=== PATIENT | female | born 1965 | race Two or more races ===

== ENCOUNTER 2016-11-12 20:52 | Outpatient (CLI) | payer OTHER | END 2016-11-12 20:53 | disposition critical access hospital (66) | LOC: EMS 20:52 | PROVIDERS: ATTEND Surgery | DX: R10.9 Unspecified abdominal pain (principal); R21 Rash and other nonspecific skin eruption | CPT/HCPCS: A0425; A0427 ==

== ENCOUNTER 2016-11-12 21:10 | Emergency (ER) | payer OTHER ==
[2016-11-12 21:38] VITALS: BP 96/58
--- NOTE | 2016-11-12 22:20 | ED Physician Documentation ---
PD HPI SKIN - Stated complaint Stated Complaint: ALLERGIC REACTION - Chief complaint Chief Complaint: Allergic Rx - History obtained from History obtained from: Patient, Family, EMS - History of Present Illness Timing - onset: Today Timing - details: Abrupt onset, Now resolved Location: Face, Neck, Abdomen, RLE, LLE Quality / character: Itchy, Burning Improved by: Oral steroids, Epi Associated symptoms: No: Headache, Facial swelling, Dyspnea, N/V/D Contributing factors: Exposed to medication Similar symptoms before: Has not had sx before Recently seen: Not recently seen - Additional information Additional information: Patient is a 51 year old female presenting to the emergency department for an allergic reaction. patient states that she took niacin tonight for the first time. immediately after patient started flushing and felt dizzy so ems was called. while with ems patient was treated with epi and benadryl. Upon initial evaluation in the emergency department patient was feeling much better. Review of Systems Constitutional: denies: Fever Eyes: denies: Decreased vision, Photophobia Ears: denies: Ear pain, Drainage/discharge Nose: reports: Congestion. denies: Rhinorrhea / runny nose Throat: denies: Sore throat Cardiac: denies: Palpitations Respiratory: denies: Cough, Wheezing GI: denies: Nausea, Vomiting : denies: Dysuria, Frequency Skin: reports: Rash. denies: Lesions, Abrasion (s), Laceration (s) Musculoskeletal: denies: Extremity pain, Extremity swelling Neurologic: denies: Generalized weakness, Focal weakness, Syncope, Altered mental status, Headache, Head injury, LOC Immunocompromised: denies: Immunocompromised PD PAST MEDICAL HISTORY - Past Medical History Past Medical History: No ENVIRONMENTAL ADVISOR: Other - Past Surgical History Past Surgical History: Yes /ENVIRONMENTAL ADVISOR: Endometrial ablation - Present Medications Home Medications: Ambulatory Orders Medication Instructions Recorded Confirmed Medroxyprogesterone Acetate 10 mg PO DAILY #14 tablet 02/21/16 [Provera] - Allergies Allergies/Adverse Reactions: Allergies Allergy/AdvReac Type Severity Reaction Status Date / Time No Known Drug Allergies Allergy Verified 02/21/16 18:04 - Social History Does the pt smoke?: No Smoking Status: Never smoker Does the pt have substance abuse?: No PD ED PE NORMAL - Vitals Vital signs reviewed: Yes - General General: Alert and oriented X 3, No acute distress - HEENT HEENT: Atraumatic, PERRL, Pharynx benign, Other (no soft palate swelling) - Neck Neck: Supple, no meningeal sign - Cardiac Cardiac: RRR, No murmur - Respiratory Respiratory: No respiratory distress - Abdomen Abdomen: Soft, Non tender, Non distended - Derm Derm: Normal color, Warm and dry, No rash - Extremities Extremities: Normal ROM s pain, No edema, No calf tenderness / cord - Neuro Neuro: Alert and oriented X 3, No motor deficit, No sensory deficit, Normal speech - Psych Psych: Normal mood, Normal affect PD ED PE EXPANDED - Derm Derm: Rash (mild splotchy erythematous rash) Results - Vitals Vitals: Vital Signs - 24 hr 11/12/16 11/12/16 21:13 21:37 Temperature 36.2 C L Heart Rate 77 Respiratory 17 Rate Blood Pressure 96/58 L O2 Saturation 100 Oxygen O2 Source Room air PD MEDICAL DECISION MAKING - ED course Complexity details: reviewed old records, reviewed results, re-evaluated patient , considered differential, d/w patient, d/w family ED course: Patient was seen and examined at bedside. Upon initial evaluation in the emergency department patient was mildly hypotensive and treated with IV fluids. Patient was also treated with solumedrol and pepcid. patient was observed in the emergency department for almost two hours. patient had no deterioration and was asymptomatic upon discharge. Patient and family felt comfortable with the plan and were stable for discharge with outpatient josue pineda. Departure - Departure Disposition: 01 Home, Self Care Clinical Impression: Allergic reaction caused by a drug Condition: Good Instructions: ED Drug React Allergic Follow-Up: primary,care provider [Other] Comments: Your symptoms today are being caused but the Niacin. the flushing from niacin is a pretty common reaction. You should no longer take the medication. You can take benadryl and pepcid for itching or flushing. If you are trying to increase your ldl cholesterol you should increase the amount of exercise. Discharge Date/Time: 11/12/16 22:28
== END 2016-11-12 22:28 | disposition home or self-care (01) ==
LOC: EDUNIT# → ED 21:10 → SUPCPDRO 21:10 → ED 22:28
DX: R42 Dizziness and giddiness (principal); R23.2 Flushing; T46.7X5A Adverse effect of peripheral vasodilators, initial encounter
CPT/HCPCS: 99283

== ENCOUNTER 2021-09-27 11:46 | Outpatient (CLI) | payer OTHER | END 2021-09-27 11:47 | disposition critical access hospital (66) | LOC: EMS 11:46 | DX: R11.2 Nausea with vomiting, unspecified (principal); R19.7 Diarrhea, unspecified; R53.1 Weakness; R42 Dizziness and giddiness | CPT/HCPCS: A0425; A0429 ==

== ENCOUNTER 2021-09-27 12:11 | Emergency (ER) | payer OTHER ==
[2021-09-27] MEDS ORDERED: SODIUM CHLORIDE 0.9% 1,000 ML IV STA (12:27)
[2021-09-27] MEDS ORDERED: PROCHLORPERAZINE 10 MG/2 ML VIAL IVP STA (12:27)
--- NOTE | 2021-09-27 12:27 | ED Physician Documentation ---
History of Present Illness - Stated complaint Stated Complaint: N/V/D - Chief complaint Chief Complaint: Abd Pain - Additonal information Additional information: 56-year-old female presents the emergency department for for evaluation of sudde n onset nausea and vomiting. She is described as a rather healthy woman who runs daily and attends martial arts classes. No smoking or tobacco use. No history of hypertension or diabetes. She takes no medications. This morning she began to get suddenly ill and nearly fainted. Since then she has had uncontrolled nausea and vomiting. She has no complaints of abdominal pain. For EMS she was given some IV Zofran and IV fluids though she arrives to the ER dry heaving. Past surgical history is most significant for only. Review of Systems Constitutional: denies: Fever, Chills Cardiac: reports: Reviewed and negative Respiratory: reports: Reviewed and negative GI: reports: Nausea, Vomiting. denies: Abdominal Pain : reports: Reviewed and negative Skin: reports: Reviewed and negative Musculoskeletal: reports: Reviewed and negative PD PAST MEDICAL HISTORY - Past Medical History BUILDING DRAFTER: Other - Past Surgical History Past Surgical History: Yes /BUILDING DRAFTER: Endometrial ablation - Present Medications Home Medications: Ambulatory Orders Medication Instructions Recorded Confirmed Medroxyprogesterone Acetate 10 mg PO DAILY #14 tablet 02/21/16 [Provera] Ondansetron Odt [Zofran] 4 mg TL Q6H PRN #10 tablet 09/27/21 - Allergies Allergies/Adverse Reactions: Allergies Allergy/AdvReac Type Severity Reaction Status Date / Time No Known Drug Allergies Allergy Verified 09/27/21 12:20 - Social History Does the pt smoke?: No Smoking Status: Never smoker Does the pt have substance abuse?: No PD ED PE NORMAL - General General: Alert and oriented X 3. No: No acute distress (Dry heaving) - Neck Neck: Supple, no meningeal sign, No adenopathy - Cardiac Cardiac: RRR, No murmur - Respiratory Respiratory: No respiratory distress, Clear bilaterally - Abdomen Abdomen: Normal bowel sounds, Soft, Non tender - Back Back: No CVA TTP - Derm Derm: Normal color, Warm and dry, No rash - Extremities Extremities: No deformity - Neuro Neuro: Alert and oriented X 3, health policy nurse 2-12 intact Eye Opening: Spontaneous Motor: Obeys Commands Verbal: Oriented GCS Score: 15 - Psych Psych: Normal mood Results - Vitals Vitals: Vital Signs - 24 hr 09/27/21 12:14 Temperature 36 C L Heart Rate 60 Respiratory 18 Rate Blood Pressure 112/78 O2 Saturation 99 Oxygen O2 Source Room air - Labs Labs: Laboratory Tests 09/27/21 09/27/21 12:23 12:23 WBC 6.0 RBC 4.00 L Hgb 11.7 L Hct 36.4 L MCV 91.0 MCH 29.3 MCHC 32.1 RDW 13.9 Plt Count 193 MPV 10.3 Neut # (Auto) 4.8 Lymph # (Auto) 0.9 L Butler # (Auto) 0.3 Eos # (Auto) 0.1 Baso # (Auto) 0.1 Absolute Nucleated RBC 0.00 Nucleated RBC % 0.0 Sodium 139 Potassium 3.9 Chloride 101 Carbon Dioxide 25 Anion Gap 13.0 BUN 19 Creatinine 0.8 Estimated GFR (MDRD) 74 L Glucose 128 H Calcium 9.2 Total Bilirubin 0.9 AST 46 H ALT 25 Alkaline Phosphatase 75 Total Protein 6.7 Albumin 4.0 Globulin 2.7 Albumin/Globulin Ratio 1.5 Lipase 31 - Rads (name of study) CT abd Radiology: Final report received (Moderate fecal load. No evidence of acute abdominal process) PD MEDICAL DECISION MAKING - ED course Complexity details: reviewed results, re-evaluated patient, considered differential, d/w patient, d/w family ED course: 56-year-old female presents emergency department for evaluation of cute onset nausea vomiting diarrhea. Symptoms began this morning. There was no reported abdominal pain or preceding illness. On presentation to the emergency department she is actively dry heaving. She had received Zofran via EMS but was administered Compazine here. On repeat evaluation she is tolerating sips of clear liquids. Screening labs showed no acute worrisome abnormalities. Given her age a CT of the abdomen was completed to rule out an acute surgical process. She does have moderate fecal loading but no findings such as bowel obstruction or acute appendicitis. Patient is feeling markedly better and will be discharged home with prescription for Zofran. Suspect likely a viral gastroenteritis. Emergent return precautions were discussed for failure symptoms resolved Departure - Departure Disposition: Home, Self Care Condition: Stable Record reviewed to determine appropriate education?: Yes Instructions: ED Diet Vomiting Diarrhea Prescriptions: Ondansetron Odt [Zofran] 4 mg TL Q6H PRN #10 tablet PRN Reason: Nausea / Vomiting Comments: Clarissa was seen today in the emergency department for sudden onset nausea vomiting and diarrhea. Today here in the emergency department she did obtain screening labs that were without any worrisome findings. A CT of her abdomen showed that she has a moderate amount of stool within her colon but there are no findings suggest a bowel obstruction acute appendicitis or other surgical process.'s most likely she has a viral gastroenteritis causing the vomiting and diarrhea. Prescription for Zofran has been sent to the [facility] in [place]. In general over the next 24 hours I do recommend frequent sips of clear liquids. As her symptoms improved you can slowly advance her diet to regular foods. If at any point you find that her symptoms worsen, she has fevers, develops any sudden severe abdominal pain, has black or bloody stools then please return immediately to the ER for second evaluation.
[2021-09-27 12:31] LABS: BASOPHILS # (AUTO) 0.1 10^3/uL (0.0-0.1); BASOPHILS % (AUTO) 0.8 %; EOSINOPHILS # (AUTO) 0.1 10^3/uL (0.0-0.7); EOSINOPHILS % (AUTO) 0.8 %; HCT - HEMATOCRIT 36.4 % (37.0-47.0); HGB - HEMOGLOBIN 11.7 g/dL (12.0-16.0); LYMPHOCYTES # (AUTO) 0.9 10^3/uL (1.5-3.5); LYMPHOCYTES % (AUTO) 14.9 %; MEAN CORPUSCULAR HEMOGLOBIN 29.3 pg (27.0-31.0); MEAN CORPUSCULAR HGB CONC 32.1 g/dL (32.0-36.0); MEAN PLATELET VOLUME 10.3 fL (7.9-10.8); MONOCYTES # (AUTO) 0.3 10^3/uL (0.0-1.0); MONOCYTES % (AUTO) 4.5 %; NEUTROPHILS # (AUTO) 4.8 10^3/uL (1.5-6.6); NEUTROPHILS % (AUTO) 78.8 %; PLT - PLATELET COUNT 193 10^3/uL (130-450); RED CELL DISTRIBUTION WIDTH 13.9 % (12.0-15.0)
[2021-09-27 12:42] LABS: ALBUMIN/GLOBULIN RATIO 1.5 (1.0-2.2); BILIRUBIN,TOTAL 0.9 mg/dL (0.2-1.0); CALCIUM 9.2 mg/dL (8.5-10.3); CREATININE 0.8 mg/dL (0.4-1.0); POTASSIUM 3.9 mmol/L (3.5-5.0); TOTAL PROTEIN 6.7 g/dL (6.7-8.2)
--- NOTE | 2021-09-27 12:59 | CT Report ---
PROCEDURE: Abdomen/Pelvis WO INDICATIONS: n/v TECHNIQUE: Noncontrast 5 mm thick sections acquired from the diaphragms to the symphysis. 5 mm coronal and sagi ttal reformats were then performed. For radiation dose reduction, the following was used: automated exposure control, adjustment of mA and/or kV according to patient size. COMPARISON: None. FINDINGS: Image quality: Excellent. ABDOMEN: Lung bases: Lung bases are clear. Heart size is normal. Solid organs: Liver and spleen are normal in size. Small low-density subcapsular lesion in the liver likely represents a cyst versus hemangioma. Gallbladder is unremarkable without calcified gallstone s noted. Pancreas is normal in contours. No adrenal nodules. Kidneys are normal in size, without h ydronephrosis or nephrolithiasis. Peritoneum and bowel: Unenhanced bowel loops demonstrate normal wall thickness and caliber. No free fluid or air. Moderate fecal load. Nodes and vessels: No retroperitoneal or mesenteric adenopathy by size criteria. Aorta and inferior vena cava are normal in caliber. Miscellaneous: No ventral hernias. PELVIS: Genitourinary: Bladder wall thickness is normal. Miscellaneous: No inguinal hernias or adenopathy. Bones: No suspicious bony lesions. No vertebral body compression fractures. IMPRESSION: 1. Moderate fecal load. 2. No evidence of acute abdominal process. Reviewed by: Andrzej Lane MD on 09/27/2021 12:57 PM PDT Approved by: Andrzej Lane MD on 09/27/2021 12:57 PM PDT Station ID: [id number]
[2021-09-27 13:25] VITALS: BP 94/67
== END 2021-09-27 13:25 | disposition home or self-care (01) ==
LOC: ED 12:11
DX: R11.2 Nausea with vomiting, unspecified (principal)
CPT/HCPCS: 36415; 80053; 83690; 85025; 96374; 99282